=== PATIENT | male | born 1945 | race Caucasian/White ===

== ENCOUNTER 2016-12-19 09:11 | Emergency (ER) | payer MEDICARE, OTHER ==
[~2016-12-19] VITALS: Ht 177.8 cm; Wt 124.9 kg
[~2016-12-19 09:11] MED LIST: ASPI325T4 PO; CARV25TA12 PO; LISI-170 PO; METF500T4 PO; SPIR1POW3
[2016-12-19 09:12] VITALS: BP 121/80
== END 2016-12-19 10:23 | disposition home or self-care (01) ==
LOC: ED 10:17
DX: K29.00 Acute gastritis without bleeding (principal); E11.9 Type 2 diabetes mellitus without complications; I10 Essential (primary) hypertension; K21.9 Gastro-esophageal reflux disease without esophagitis; Z79.82 Long term (current) use of aspirin
CPT/HCPCS: 99283

== ENCOUNTER 2017-12-27 10:11 | Emergency (ER) | payer MEDICARE, OTHER ==
[~2017-12-27] VITALS: Ht 165.1 cm; Wt 133.0 kg
[~2017-12-27 10:11] MED LIST changes: +ASPI325T17 PO; -ASPI325T4 PO; -METF500T4 PO; +METF500T5 PO
[2017-12-27 10:13] VITALS: BP 166/79
== END 2017-12-27 11:43 | disposition home or self-care (01) ==
LOC: ED 11:03
DX: S80.01XA Contusion of right knee, initial encounter (principal); K21.9 Gastro-esophageal reflux disease without esophagitis; I10 Essential (primary) hypertension; E11.9 Type 2 diabetes mellitus without complications; X50.1XXA Overexertion from prolonged static or awkward postures, initial encounter; Y93.89 Activity, other specified; Y92.009 Unspecified place in unspecified non-institutional (private) residence as the place of occurrence of the external cause; Y99.8 Other external cause status
CPT/HCPCS: 99284

== ENCOUNTER 2019-07-15 12:23 | Emergency (ER) | payer MEDICARE ==
[~2019-07-15] VITALS: Ht 177.8 cm; Wt 122.1 kg
[~2019-07-15 12:23] MED LIST changes: +METF500T17 PO; -METF500T5 PO
--- NOTE | 2019-07-15 12:44 | NUR ---
PATIENT BROUGHT BACK FROM TRIAGE WITH CHIEF COMPLAINT OF- "SORT OF DIGESTIVE THING GOING ON". "ANYTHING I EAT TURNS TO ACID AND I THROW IT UP" DENIES ABD PAIN N/V THIS AM, DENIES CP & SOB. Addendum: 07/15/19 at 1256 by [email or web address] PATIENT BROUGHT BACK FROM TRIAGE WITH CHIEF COMPLAINT OF- "SORT OF DIGESTIVE THING GOING ON". "ANYTHING I EAT TURNS TO ACID AND I THROW IT UP" N/V THIS AM, DENIES CP & SOB.
[2019-07-15] MEDS ORDERED: GLIM4TAB8 PO (12:58)
[2019-07-15] MEDS ORDERED: ATOR10TA9 PO (12:58)
[2019-07-15] MEDS ORDERED: SODIUM CHLORIDE 0.9% 1,000 ML IV ONE (13:02)
[2019-07-15] MEDS ORDERED: DAPA5TAB PO (13:12)
--- NOTE | 2019-07-15 13:19 | NUR ---
KRISTI DREW AT BEDSIDE FOR EVALUTION
[2019-07-15 13:21] LABS: BASOPHILS # (AUTO) 0.04 x10^3/uL (0-0.1); BASOPHILS % (AUTO) 0 % (0-1); EOSINOPHILS # (AUTO) 0.01 x10^3/uL (0-0.4); EOSINOPHILS % (AUTO) 0 % (1-7); LYMPHOCYTES # (AUTO) 1.87 x10^3/uL (1-3.4); LYMPHOCYTES % (AUTO) 13 % (22-44); MD NO; MEAN CORPUSCULAR HEMOGLOBIN 31.7 pg (27.5-34.5); MEAN CORPUSCULAR HGB CONC 33.7 g/dL (33.2-36.2); MEAN CORPUSCULAR VOLUME 94.2 fL (81-97); MEAN PLATELET VOLUME 8.2 fL (7.4-10.4); MONOCYTES # (AUTO) 0.76 x10^3/uL (0.2-0.8); MONOCYTES % (AUTO) 5 % (2-9); NEUTROPHILS # (AUTO) 11.43 x10^3/uL (1.8-6.8); NEUTROPHILS % (AUTO) 81 % (42-75); PLATELET COUNT 242 x10^3/uL (130-400); RED BLOOD COUNT 5.71 x10^6/uL (4.38-5.82); RED CELL DISTRIBUTION WIDTH 13.8 % (9.4-14.8)
[2019-07-15 13:24] LABS: MICROSCOPIC INDICATED
[2019-07-15] MEDS ORDERED: SODIUM CHLORIDE FLUSH 10ML SYR IVF ONE (13:30)
[2019-07-15 13:32] LABS: ALANINE AMINOTRANSFERASE 24 U/L (12-78); ALBUMIN 3.8 g/dL (3.4-5.0); ANION GAP 12 mmol/L (5-15); CHLORIDE 98 mmol/L (98-107); CREATININE 1.55 mg/dL (0.7-1.3)
[2019-07-15 13:34] LABS: CULTURE INDICATED? NO
[2019-07-15 13:35] LABS: ALKALINE PHOSPHATASE 63 U/L (45-117); BILIRUBIN,TOTAL 3.3 mg/dL (0.2-1.0); TOTAL PROTEIN 8.1 g/dL (6.4-8.2)
--- NOTE | 2019-07-15 14:00 | NUR ---
STEADY AMBULATION UP TO BATHROOM
--- NOTE | 2019-07-15 14:21 | NUR ---
PT TO IMAGING
[2019-07-15] MEDS ORDERED: CEFTRIAXONE PMX 1GM/50ML 50 ML ONE (15:22)
[2019-07-15] MEDS ORDERED: METRONIDAZOLE PMX 500MG/100ML 0 ML ONE (15:22)
[2019-07-15] MEDS ORDERED: METRONIDAZOLE PMX 500MG/100ML 100 ML IV ONE (15:30)
[2019-07-15] MEDS ORDERED: CEFTRIAXONE PMX 1GM/50ML 50 ML IV ONE (15:30)
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
[2019-07-15 15:38] VITALS: BP 156/91
--- NOTE | 2019-07-15 16:27 | NUR ---
POC AND MEDICAL CONCERN DISCUSSED. PT STILL REQUESTS TO LEAVE AND COME BACK AFTER TAKES CARE OF DOGS. AMA PAPERWORKED SIGNED, PRESCRIPTIONS PROVIDED.
[2019-07-15] MEDS ORDERED: OMNIPAQUE 350 MG/ML, 100ML BOTTLE ONE (18:00)
[2019-07-16] MEDS ORDERED: METR-90 PO (21:00)
[2019-07-16] MEDS ORDERED: OMEP-110 PO (21:00)
[2019-07-16] MEDS ORDERED: CEFD300C37 PO (21:00)
== END 2019-07-15 16:32 ==
LOC: ED 13:59
DX: K63.1 Perforation of intestine (nontraumatic) (principal); A41.9 Sepsis, unspecified organism; N28.9 Disorder of kidney and ureter, unspecified; E83.52 Hypercalcemia; I10 Essential (primary) hypertension; E11.9 Type 2 diabetes mellitus without complications; K21.9 Gastro-esophageal reflux disease without esophagitis
CPT/HCPCS: 36415; 74177; 80053; 81001; 82330; 83690; 83970; 85025; 96361; 96365; 99285; J0696; J7030; Q9967

== ENCOUNTER 2019-08-14 12:15 | Emergency (ER) | payer MEDICARE ==
[~2019-08-14] VITALS: Ht 177.8 cm; Wt 123.0 kg
[~2019-08-14 12:15] MED LIST changes: +ATOR10TA9 PO; +CEFD300C37 PO; +DAPA5TAB PO; +GLIM4TAB8 PO; +INSU100I11 SQ-INSULIN; +METR-90 PO; +OMEP-110 PO; +PANT40TA5 PO; +PIPE3.375 IV
[2019-08-14] MEDS ORDERED: SODIUM CHLORIDE FLUSH 10ML SYR IVF ONE (13:00)
[2019-08-14] MEDS ORDERED: PLEASE ENTER HEIGHT AND WEIGHT MC SCH (13:00)
--- NOTE | 2019-08-14 13:05 | NUR ---
report received from joy reddy.
--- NOTE | 2019-08-14 13:18 | NUR ---
pt amb to br with steady gait. urinal/hat given.
[2019-08-14 13:19] LABS: BASOPHILS # (AUTO) 0.05 x10^3/uL (0-0.1); BASOPHILS % (AUTO) 0 % (0-1); EOSINOPHILS # (AUTO) 0.23 x10^3/uL (0-0.4); EOSINOPHILS % (AUTO) 2 % (1-7); LYMPHOCYTES # (AUTO) 1.54 x10^3/uL (1-3.4); LYMPHOCYTES % (AUTO) 12 % (22-44); MD NO; MEAN CORPUSCULAR HEMOGLOBIN 31.2 pg (27.5-34.5); MEAN CORPUSCULAR HGB CONC 33.1 g/dL (33.2-36.2); MEAN CORPUSCULAR VOLUME 94.4 fL (81-97); MONOCYTES # (AUTO) 0.63 x10^3/uL (0.2-0.8); MONOCYTES % (AUTO) 5 % (2-9); NEUTROPHILS # (AUTO) 10.04 x10^3/uL (1.8-6.8); NEUTROPHILS % (AUTO) 80 % (42-75); PLATELET COUNT 231 x10^3/uL (130-400); RED BLOOD COUNT 4.22 x10^6/uL (4.38-5.82)
[2019-08-14 13:24] LABS: ALANINE AMINOTRANSFERASE 21 U/L (12-78); ALBUMIN 2.5 g/dL (3.4-5.0); ANION GAP 7 mmol/L (5-15); CALCIUM 8.3 mg/dL (8.5-10.1); CHLORIDE 106 mmol/L (98-107); CREATININE 1.61 mg/dL (0.7-1.3)
[2019-08-14 13:26] LABS: ALKALINE PHOSPHATASE 66 U/L (45-117); BILIRUBIN,TOTAL 1.2 mg/dL (0.2-1.0); TOTAL PROTEIN 6.9 g/dL (6.4-8.2)
--- NOTE | 2019-08-14 13:32 | NUR ---
pt provided urine sample. ua sent.
--- NOTE | 2019-08-14 13:44 | NUR ---
CT ON HOLD FOR CODE BLUE PRIOR PATIENT
[2019-08-14 13:45] LABS: MICROSCOPIC AUTO
[2019-08-14 13:48] LABS: CULTURE INDICATED? YES
--- NOTE | 2019-08-14 14:14 | NUR ---
mouth swabs given at this time per pt's request.
--- NOTE | 2019-08-14 14:36 | NUR ---
pt to ct at this time.
--- NOTE | 2019-08-14 14:56 | NUR ---
pt back to room from ct at this time.
[2019-08-14] MEDS ORDERED: OMNIPAQUE 350 MG/ML, 100ML BOTTLE ONE (15:00)
--- NOTE | 2019-08-14 15:36 | NUR ---
pt resting in [facility]. pt's aox4. resps even and unlabored. bp/spo2 monitors in place. call light within reach.
--- NOTE | 2019-08-14 16:37 | NUR ---
pt amb to br with steady gait with walker.
--- NOTE | 2019-08-14 17:23 | NUR ---
pt back to bed from chair with infertility medical assistant. pt's aox4. resps even and unlabored.
--- NOTE | 2019-08-14 18:16 | NUR ---
470ml urine in baladder by bladder scan per edmd order. edmd notified and ordered andrea cath.
--- NOTE | 2019-08-14 18:39 | NUR ---
PT'S TOLENTINO CATH'D PER EDMD ORDER AT THIS TIME. PT TOLERATED WELL. BLOOD TINGLED YELLOW URINE FLOWING WELL. PT'S AOX4. RESPS EVEN AND UNLABORED. BP/SPO2 MONITORS IN PLACE. CALL LIGHT WITHIN REACH.
[2019-08-14 18:52] VITALS: BP 113/66
[2019-08-14] MEDS ORDERED: NEOSPORIN OINT. PKT 1 PACKET ONE (19:17)
--- NOTE | 2019-08-14 19:37 | NUR ---
Pt wound cleaned, ointment and dressing applied. Pt resting comfortably, will continue to monitor.
--- NOTE | 2019-08-14 20:05 | NUR ---
Multiple attempts made to contact rehab facility for nurse to nurse.
--- NOTE | 2019-08-14 20:20 | NUR ---
attempted to call nurse to nurse x3 with no answer.
--- NOTE | 2019-08-14 20:34 | NUR ---
Nurse to nurse given to J[facility]HR[facility]ledo at [facility] [place].
== END 2019-08-14 21:28 | disposition home or self-care (01) ==
LOC: ED 14:58
DX: R10.11 Right upper quadrant pain (principal); R10.31 Right lower quadrant pain; R10.33 Periumbilical pain; I10 Essential (primary) hypertension; E11.9 Type 2 diabetes mellitus without complications; K21.9 Gastro-esophageal reflux disease without esophagitis; E78.5 Hyperlipidemia, unspecified; E78.00 Pure hypercholesterolemia, unspecified; K27.9 Peptic ulcer, site unspecified, unspecified as acute or chronic, without hemorrhage or perforation
CPT/HCPCS: 36415; 74177; 80053; 81001; 83690; 85025; 87077; 87086; 99285; Q9967; 87186

== ENCOUNTER 2020-04-25 19:40 | Emergency (ER) | payer MEDICARE ==
[~2020-04-25] VITALS: Ht 177.8 cm; Wt 125.9 kg
[~2020-04-25 19:40] MED LIST changes: +DOXY100T PO; -PANT40TA5 PO; +PANT40TA6 PO
[2020-04-25 19:43] VITALS: BP 153/74
[2020-04-25] MEDS ORDERED: IBUPROFEN 600 MG TABLET ONE (20:34)
[2020-04-25] MEDS ORDERED: IBUPROFEN 200 MG TABLET PO ONE (21:00)
== END 2020-04-25 21:09 | disposition home or self-care (01) ==
LOC: ED 20:07
DX: B02.9 Zoster without complications (principal); I10 Essential (primary) hypertension; E11.9 Type 2 diabetes mellitus without complications; K21.9 Gastro-esophageal reflux disease without esophagitis; E78.00 Pure hypercholesterolemia, unspecified
CPT/HCPCS: 99283

== ENCOUNTER 2020-05-25 15:04 | Emergency (ER) | payer MEDICARE ==
[~2020-05-25] VITALS: Ht 177.8 cm; Wt 122.9 kg
[2020-05-25 15:18] VITALS: BP 155/93
[2020-05-25 15:44] LABS: BASOPHILS % (AUTO) 1 % (0-1); EOSINOPHILS % (AUTO) 3 % (1-7); LYMPHOCYTES % (AUTO) 38 % (22-44); MEAN CORPUSCULAR HEMOGLOBIN 30.9 pg (27.5-34.5); MEAN CORPUSCULAR HGB CONC 34.4 g/dL (33.2-36.2); MEAN PLATELET VOLUME 7.1 fL (7.4-10.4); MONOCYTES % (AUTO) 7 % (2-9); NEUTROPHILS % (AUTO) 52 % (42-75); PLATELET COUNT 273 x10^3/uL (130-400); RED BLOOD COUNT 4.95 x10^6/uL (4.38-5.82); RED CELL DISTRIBUTION WIDTH 15.8 % (9.4-14.8)
[2020-05-25 15:45] LABS: MD NO
[2020-05-25 15:54] LABS: ALANINE AMINOTRANSFERASE 24 U/L (12-78); ALBUMIN 3.4 g/dL (3.4-5.0); ANION GAP 6 mmol/L (5-15); CALCIUM 9.2 mg/dL (8.5-10.1); CHLORIDE 106 mmol/L (98-107); CREATININE 1.17 mg/dL (0.7-1.3)
[2020-05-25 15:58] LABS: ALKALINE PHOSPHATASE 57 U/L (45-117); BILIRUBIN,TOTAL 1.1 mg/dL (0.2-1.0); TOTAL PROTEIN 6.9 g/dL (6.4-8.2); TROPONIN I < 0.015 ng/mL (0.000-0.045)
[2020-05-25] MEDS ORDERED: KETOROLAC 30 MG/1 ML IM ONE (20:00)
[2020-05-25] MEDS ORDERED: KETOROLAC 30 MG/1 ML ONE (20:37)
[2020-05-25 20:54] LABS: MICROSCOPIC AUTO
== END 2020-05-25 22:00 | disposition home or self-care (01) ==
LOC: ED 17:35
DX: B02.29 Other postherpetic nervous system involvement (principal); R94.31 Abnormal electrocardiogram [ECG] [EKG]; E11.9 Type 2 diabetes mellitus without complications; I10 Essential (primary) hypertension; K21.9 Gastro-esophageal reflux disease without esophagitis; E78.00 Pure hypercholesterolemia, unspecified; E78.5 Hyperlipidemia, unspecified
CPT/HCPCS: 36415; 71045; 80053; 81001; 83880; 84484; 85025; 93005; 96372; 99285; J1885

== ENCOUNTER 2020-05-27 15:37 | Emergency (ER) | payer MEDICARE ==
[~2020-05-27] VITALS: Ht 177.8 cm; Wt 122.8 kg
[2020-05-27 15:41] VITALS: BP 134/86
--- NOTE | 2020-05-27 16:48 | NUR ---
TO NARENDRA FROM LOBBY
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
--- NOTE | 2020-05-27 17:32 | NUR ---
Patient/Caregiver given discharge instructions and they have confirmed that they understand the instructions. Patient ambulatory with steady gait.
--- NOTE | 2020-05-27 17:32 | NUR ---
Patient/Caregiver given discharge instructions and they have confirmed that they understand the instructions. Patient discharged in wheelchair with son at side.
== END 2020-05-27 17:33 | disposition home or self-care (01) ==
LOC: ED 17:15
DX: S83.411A Sprain of medial collateral ligament of right knee, initial encounter (principal); I10 Essential (primary) hypertension; K21.9 Gastro-esophageal reflux disease without esophagitis; E11.9 Type 2 diabetes mellitus without complications; E78.5 Hyperlipidemia, unspecified; Z87.891 Personal history of nicotine dependence; Z87.11 Personal history of peptic ulcer disease; W01.0XXA Fall on same level from slipping, tripping and stumbling without subsequent striking against object, initial encounter; Y93.89 Activity, other specified; Y92.009 Unspecified place in unspecified non-institutional (private) residence as the place of occurrence of the external cause; Y99.8 Other external cause status
CPT/HCPCS: 99283

== ENCOUNTER 2020-06-15 15:19 | Emergency (ER) | payer MEDICARE ==
[~2020-06-15] VITALS: Ht 177.8 cm; Wt 122.5 kg
--- NOTE | 2020-06-15 15:41 | NUR ---
PATIENT WALKED BACK FROM TRIAGE WITH CHIEF C/O DIZZINESS. PATIENT STATES DIZZINESS HAS BEEN ONGOING X1 WEEK AND NOT IMPROVING. PATIENT DENIES N/V/D, DENIES SOB, DENIES NUMBNESS/TINGLING, STATES THE ONLY SYMPTOM IS "DIZZINESS." PATIENT HAD SHINGLES ABOUT 1 MONTH AGO. NADN, SON AT BEDSIDE.
--- NOTE | 2020-06-15 16:00 | NUR ---
ER PROVIDER AT BEDSIDE FOR EVALUATION.
--- NOTE | 2020-06-15 16:18 | NUR ---
PATIENT PROVIDED URINAL FOR URINE SAMPLE. BARKEEP AT BEDSIDE.
[2020-06-15 16:32] LABS: BASOPHILS % (AUTO) 1 % (0-1); EOSINOPHILS % (AUTO) 3 % (1-7); LYMPHOCYTES % (AUTO) 34 % (22-44); MEAN CORPUSCULAR HEMOGLOBIN 31.8 pg (27.5-34.5); MEAN CORPUSCULAR HGB CONC 34.1 g/dL (33.2-36.2); MEAN PLATELET VOLUME 7.2 fL (7.4-10.4); MONOCYTES % (AUTO) 8 % (2-9); NEUTROPHILS % (AUTO) 55 % (42-75); PLATELET COUNT 246 x10^3/uL (130-400); RED BLOOD COUNT 4.35 x10^6/uL (4.38-5.82); RED CELL DISTRIBUTION WIDTH 17.4 % (9.4-14.8)
[2020-06-15 16:33] LABS: MD NO
[2020-06-15 16:42] LABS: ALANINE AMINOTRANSFERASE 17 U/L (12-78); ANION GAP 5 mmol/L (5-15); CALCIUM 8.8 mg/dL (8.5-10.1); CHLORIDE 110 mmol/L (98-107); CREATININE 1.57 mg/dL (0.7-1.3)
[2020-06-15 16:44] LABS: ALKALINE PHOSPHATASE 57 U/L (45-117); BILIRUBIN,TOTAL 0.5 mg/dL (0.2-1.0); TOTAL PROTEIN 6.6 g/dL (6.4-8.2)
[2020-06-15] MEDS ORDERED: SODIUM CHLORIDE 0.9%, 500ML IVBOLUS ONE (17:00)
[2020-06-15 18:22] VITALS: BP 122/74
== END 2020-06-15 18:24 | disposition home or self-care (01) ==
LOC: ED 16:00
DX: R55 Syncope and collapse (principal); I95.9 Hypotension, unspecified; E86.0 Dehydration; R53.83 Other fatigue; E78.5 Hyperlipidemia, unspecified; E11.9 Type 2 diabetes mellitus without complications; I10 Essential (primary) hypertension
CPT/HCPCS: 36415; 70450; 80053; 85025; 93005; 99285; J7040

== ENCOUNTER 2020-07-07 09:07 | Emergency (ER) | payer MEDICARE ==
[~2020-07-07] VITALS: Ht 177.8 cm; Wt 128.1 kg
--- NOTE | 2020-07-07 09:45 | NUR ---
PT IN BED RESTING COMFORTABLTY. PT STATED THAT HE HAS SWELLING IN HIS BLE FOR THE PAST COUPLE WEEKS. PT STATED THAT HE NEEDS A PENICILLIN SHOT, ALTHOUGH HE DOES NOT THINK HE HAS AN INFECTION. PT DENIES ANY PAIN OR DISCOMFORT.
[2020-07-07 09:49] LABS: BASOPHILS % (AUTO) 1 % (0-1); EOSINOPHILS % (AUTO) 5 % (1-7); LYMPHOCYTES % (AUTO) 27 % (22-44); MEAN CORPUSCULAR HEMOGLOBIN 31.2 pg (27.5-34.5); MEAN CORPUSCULAR HGB CONC 33.3 g/dL (33.2-36.2); MEAN PLATELET VOLUME 6.9 fL (7.4-10.4); MONOCYTES % (AUTO) 7 % (2-9); NEUTROPHILS % (AUTO) 59 % (42-75); PLATELET COUNT 332 x10^3/uL (130-400); RED BLOOD COUNT 3.13 x10^6/uL (4.38-5.82); RED CELL DISTRIBUTION WIDTH 17.4 % (9.4-14.8)
[2020-07-07 09:51] LABS: MD NO
[2020-07-07 09:52] VITALS: BP 144/79
[2020-07-07] MEDS ORDERED: ATOR20TA37 PO (09:54)
[2020-07-07 10:01] LABS: ALBUMIN 2.9 g/dL (3.4-5.0); ANION GAP 3 mmol/L (5-15); CALCIUM 8.7 mg/dL (8.5-10.1); CHLORIDE 108 mmol/L (98-107); CREATININE 1.17 mg/dL (0.7-1.3)
--- NOTE | 2020-07-07 10:44 | NUR ---
DISCHARGE INSTRUCTIONS REVIEWED WITH PT. ALL QUESTIONS ANSWERED AT THIS TIME.
== END 2020-07-07 10:48 | disposition home or self-care (01) ==
LOC: ED 09:58
DX: I83.11 Varicose veins of right lower extremity with inflammation (principal); I83.12 Varicose veins of left lower extremity with inflammation; D64.9 Anemia, unspecified; K21.9 Gastro-esophageal reflux disease without esophagitis; E11.9 Type 2 diabetes mellitus without complications; E78.5 Hyperlipidemia, unspecified; E78.00 Pure hypercholesterolemia, unspecified; Z87.891 Personal history of nicotine dependence
CPT/HCPCS: 36415; 80048; 82040; 85025; 99283

== ENCOUNTER 2020-07-07 15:05 | Inpatient (IN) | payer MEDICARE ==
[~2020-07-07] VITALS: Ht 177.8 cm; Wt 128.1 kg
[~2020-07-07 15:05] MED LIST changes: +ATOR20TA37 PO
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
--- NOTE | 2020-07-07 16:18 | NUR ---
PT STATED THAT HE JUST WENT TO THE BATHROOM AND HAD A BLOODY BM. ER NOTIFIED.
[2020-07-07] MEDS ORDERED: SODIUM CHLORIDE FLUSH 10ML SYR IVF ONE (17:00)
[2020-07-07] MEDS ORDERED: SODIUM CHLORIDE 0.9% 1,000ML IVBOLUS ONE (17:00)
[2020-07-07 17:12] LABS: BASOPHILS % (AUTO) 1 % (0-1); EOSINOPHILS % (AUTO) 2 % (1-7); LYMPHOCYTES % (AUTO) 15 % (22-44); MEAN CORPUSCULAR HEMOGLOBIN 31.2 pg (27.5-34.5); MEAN CORPUSCULAR HGB CONC 33.5 g/dL (33.2-36.2); MEAN PLATELET VOLUME 7.2 fL (7.4-10.4); MONOCYTES % (AUTO) 6 % (2-9); NEUTROPHILS % (AUTO) 77 % (42-75); PLATELET COUNT 365 x10^3/uL (130-400); RED CELL DISTRIBUTION WIDTH 17.3 % (9.4-14.8)
[2020-07-07 17:13] LABS: MD NO
[2020-07-07 17:22] LABS: ALANINE AMINOTRANSFERASE 15 U/L (12-78); ALBUMIN 2.7 g/dL (3.4-5.0); ANION GAP 9 mmol/L (5-15); CALCIUM 8.4 mg/dL (8.5-10.1); CHLORIDE 109 mmol/L (98-107); CREATININE 1.32 mg/dL (0.7-1.3)
[2020-07-07 17:27] LABS: ALKALINE PHOSPHATASE 62 U/L (45-117); BILIRUBIN,TOTAL 0.7 mg/dL (0.2-1.0); TROPONIN I < 0.015 ng/mL (0.000-0.045)
[2020-07-07] MEDS ORDERED: PANTOPRAZOLE 80 MG in SODIUM CHLORIDE 0.9% 50 ML IVPB ONE (17:30)
[2020-07-07] MEDS ORDERED: PANTOPRAZOLE 80 MG in SODIUM CHLORIDE 0.9% 100 ML IV SCH ×2 (17:30→19:00)
--- NOTE | 2020-07-07 18:49 | NUR ---
REPORT GIVEN TO JETHRO KING
[2020-07-07] MEDS ORDERED: ONDANSETRON 2MG/ML, 2ML IVPush PRN (19:00)
[2020-07-07] MEDS ORDERED: INSULIN LISPRO 100 UNITS/ML, PEN SQ-INSULIN SCH (21:00)
[2020-07-08 02:00] VITALS: BP 119/66
[2020-07-08 05:07] VITALS: BP 182/134
[2020-07-08] MEDS ORDERED: ATROPINE SYRINGE 0.1 MG/ML, 10ML ONE (11:03)
== END 2020-07-08 08:50 | disposition expired | DRG 378 ==
LOC: ED 15:41 → EDIP 19:13 → 4WST 20:17
PROVIDERS: ADMIT Family Medicine; ATTEND Hospitalist
DX: K92.1 Melena (principal); Z68.41 Body mass index [BMI] 40.0-44.9, adult; D64.9 Anemia, unspecified; E11.9 Type 2 diabetes mellitus without complications; E78.5 Hyperlipidemia, unspecified; I10 Essential (primary) hypertension; G47.33 Obstructive sleep apnea (adult) (pediatric); K21.9 Gastro-esophageal reflux disease without esophagitis; E66.9 Obesity, unspecified; Z87.11 Personal history of peptic ulcer disease; Z90.89 Acquired absence of other organs
CPT/HCPCS: 36415; 80053; 82962; 84484; 85014; 85018; 85025; 93005; 96361; 96374; 96375; 99285; G0378; J0461; C9113; J1815; J7030